=== PATIENT | male | born 1940 | race Caucasian/White ===

== ENCOUNTER → 2018-03-04 | Outpatient (CLI) | payer MEDICARE ==
[~2018-03-04] MED LIST: ASPI-496 PO; ATOR10TA9 PO; ESOM40CA PO; HYDR-3240 PO; MONT10TA6 PO; SIMV10TA3 PO; TAMS-11 PO; VITA1TAB19 PO
== END | disposition home or self-care (01) ==
LOC: CFH 08:29
PROVIDERS: ATTEND Nurse Practitioner Family
DX: K40.90 Unilateral inguinal hernia, without obstruction or gangrene, not specified as recurrent (principal); K64.0 First degree hemorrhoids; K59.00 Constipation, unspecified; L29.0 Pruritus ani
CPT/HCPCS: 76857

== ENCOUNTER 2018-08-26 12:45 | Outpatient (CLI) | payer MEDICARE ==
[2018-08-26 14:00] LABS: BASOPHILS # (AUTO) 0.03 x10^3/uL (0-0.1); BASOPHILS % (AUTO) 0 % (0-1); EOSINOPHILS # (AUTO) 0.29 x10^3/uL (0-0.4); EOSINOPHILS % (AUTO) 3 % (1-7); LYMPHOCYTES # (AUTO) 2.54 x10^3/uL (1-3.4); LYMPHOCYTES % (AUTO) 29 % (22-44); MD NO; MEAN CORPUSCULAR HEMOGLOBIN 27.8 pg (27.5-34.5); MEAN CORPUSCULAR HGB CONC 31.8 g/dL (33.2-36.2); MEAN CORPUSCULAR VOLUME 87.5 fL (81-97); MEAN PLATELET VOLUME 8.2 fL (7.4-10.4); MONOCYTES # (AUTO) 0.44 x10^3/uL (0.2-0.8); MONOCYTES % (AUTO) 5 % (2-9); NEUTROPHILS # (AUTO) 5.47 x10^3/uL (1.8-6.8); NEUTROPHILS % (AUTO) 62 % (42-75); PLATELET COUNT 301 x10^3/uL (130-400); RED BLOOD COUNT 4.55 x10^6/uL (4.38-5.82); RED CELL DISTRIBUTION WIDTH 16.4 % (9.4-14.8)
[2018-08-26 14:09] LABS: INTERNATIONAL NORMALIZED RATIO 1.06 (0.93-1.1); PROTHROMBIN TIME 11.1 Seconds (9.6-11.5)
[2018-08-26 14:10] LABS: ANION GAP 7 mmol/L (5-15); CALCIUM 8.6 mg/dL (8.5-10.1); CHLORIDE 107 mmol/L (98-107); CREATININE 1.06 mg/dL (0.7-1.3)
[2018-08-26 14:19] LABS: CULTURE INDICATED? NO; MICROSCOPIC NOT IND
[2018-08-31] MEDS ORDERED: ROPI0.254 PO (08:35)
[2018-08-31] MEDS ORDERED: PANT40TA5 PO (08:35)
[2018-08-31] MEDS ORDERED: MULT-696 PO (08:35)
== END 2018-08-26 23:59 | disposition home or self-care (01) ==
LOC: STAR 12:45
PROVIDERS: ATTEND Neurological Surgery
DX: Z01.818 Encounter for other preprocedural examination (principal); M48.061 Spinal stenosis, lumbar region without neurogenic claudication; R79.1 Abnormal coagulation profile; R94.31 Abnormal electrocardiogram [ECG] [EKG]; R82.90 Unspecified abnormal findings in urine; J90 Pleural effusion, not elsewhere classified; J84.10 Pulmonary fibrosis, unspecified; I44.7 Left bundle-branch block, unspecified
CPT/HCPCS: 36415; 71046; 80048; 81003; 85025; 85610; 85730; 93005

== ENCOUNTER 2018-09-04 07:53 | Inpatient (IN) | payer MEDICARE ==
[~2018-09-04] VITALS: Ht 188 cm; Wt 96.0 kg
[2018-09-05 08:50] VITALS: BP 104/57
== END 2018-09-05 10:11 | disposition home or self-care (01) | DRG 520 ==
LOC: OUT 07:53 → ORIP 13:30 → 4NOR 14:35 → DCLOUNGE 09-05 09:50
PROVIDERS: ADMIT Neurological Surgery; ATTEND Neurological Surgery
PROC: 01NB0ZZ Release Lumbar Nerve, Open Approach (ICD-10-PCS; principal; 2018-09-04)
PROC: 00NY0ZZ Release Lumbar Spinal Cord, Open Approach (ICD-10-PCS; 2018-09-04)
DX: M48.062 Spinal stenosis, lumbar region with neurogenic claudication (principal); J44.9 Chronic obstructive pulmonary disease, unspecified; M19.90 Unspecified osteoarthritis, unspecified site; I25.10 Atherosclerotic heart disease of native coronary artery without angina pectoris; I10 Essential (primary) hypertension; Z82.61 Family history of arthritis; Z83.6 Family history of other diseases of the respiratory system; I25.2 Old myocardial infarction; Z79.899 Other long term (current) drug therapy
CPT/HCPCS: 72100; 94640; G0378; J0690; J1100; J2250; J2405; J2704; J3010; J3370; J3490; J7613; J0330; J1200; J3480; J7120

== ENCOUNTER 2019-11-08 14:02 | Inpatient (IN) | payer MEDICARE ==
[~2019-11-08] VITALS: Ht 188 cm; Wt 90.4 kg
[~2019-11-08 14:02] MED LIST changes: +CEPH-368 PO; +MULT-696 PO; +PANT40TA6 PO; +ROPI0.254 PO; +SIMV10TA18 PO; -SIMV10TA3 PO
--- NOTE | 2019-11-08 14:10 | NUR ---
N/V/D X 2 DAYS
--- NOTE | 2019-11-08 14:53 | NUR ---
PIV PLACED FROM WHICH LABS WERE DRAWN
[2019-11-08] MEDS ORDERED: ONDANSETRON 2MG/ML, 2ML ONE (14:57)
[2019-11-08] MEDS ORDERED: SODIUM CHLORIDE FLUSH 10ML SYR IVF ONE (15:00)
[2019-11-08] MEDS ORDERED: ONDANSETRON 2MG/ML, 2ML IVPush ONE (15:00)
[2019-11-08 15:05] LABS: BASOPHILS # (AUTO) 0.02 x10^3/uL (0-0.1); BASOPHILS % (AUTO) 0 % (0-1); EOSINOPHILS # (AUTO) 0.19 x10^3/uL (0-0.4); EOSINOPHILS % (AUTO) 2 % (1-7); LYMPHOCYTES # (AUTO) 1.56 x10^3/uL (1-3.4); LYMPHOCYTES % (AUTO) 16 % (22-44); MD NO; MEAN CORPUSCULAR HEMOGLOBIN 27.7 pg (27.5-34.5); MEAN CORPUSCULAR HGB CONC 31.8 g/dL (33.2-36.2); MEAN PLATELET VOLUME 7.1 fL (7.4-10.4); MONOCYTES # (AUTO) 0.29 x10^3/uL (0.2-0.8); MONOCYTES % (AUTO) 3 % (2-9); NEUTROPHILS # (AUTO) 7.82 x10^3/uL (1.8-6.8); NEUTROPHILS % (AUTO) 79 % (42-75); PLATELET COUNT 377 x10^3/uL (130-400); RED CELL DISTRIBUTION WIDTH 14.1 % (9.4-14.8)
[2019-11-08 15:12] LABS: ALBUMIN 2.8 g/dL (3.4-5.0); ANION GAP 5 mmol/L (5-15); CALCIUM 8.4 mg/dL (8.5-10.1); CHLORIDE 91 mmol/L (98-107)
[2019-11-08 15:16] LABS: ALANINE AMINOTRANSFERASE 20 U/L (12-78); ALKALINE PHOSPHATASE 66 U/L (45-117); BILIRUBIN,TOTAL 0.5 mg/dL (0.2-1.0); TOTAL PROTEIN 6.4 g/dL (6.4-8.2)
--- NOTE | 2019-11-08 15:23 | NUR ---
UNABLE TO VOID. PROVIDER MADE AWARE- TO ADMIN 500ML OF NS. NOW COMPLAINING OF CARDIA SXS-PROVIDER NOTIFIED
[2019-11-08] MEDS ORDERED: SODIUM CHLORIDE 0.9%, 500ML IVBOLUS ONE ×2 (15:30→17:00)
--- NOTE | 2019-11-08 15:56 | NUR ---
EKG AND TROPONIN ADDED BY PROVIDER 500ML NS COMPLETE UP TO RESTROOM TO VOID
[2019-11-08 15:58] LABS: TROPONIN I < 0.015 ng/mL (0.000-0.045)
--- NOTE | 2019-11-08 16:00 | NUR ---
Po challenge successful -tolerating po without nausea Provider made aware of writers hesitation to d/c patient with ow sodium. Provider ordered another 500ml bolus and will re-eval once infused
[2019-11-08 16:27] LABS: MICROSCOPIC NOT IND
[2019-11-08] MEDS ORDERED: RANO500T2 PO (17:40)
[2019-11-08] MEDS ORDERED: NITR0.4T28 SL (17:40)
[2019-11-08] MEDS ORDERED: ASPI-515 PO (17:40)
[2019-11-08] MEDS ORDERED: MELA5TAB10 SL (17:40)
[2019-11-08] MEDS ORDERED: PREG50CA PO (17:40)
[2019-11-08] MEDS ORDERED: DESM0.1T5 PO (17:40)
[2019-11-08] MEDS ORDERED: MAALOX/HYOSCYAMINE/LIDOCAINE 45 ML BTL PO ONE ×2 (18:30→20:00)
[2019-11-08 18:52] VITALS: BP 145/78
[2019-11-08] MEDS ORDERED: NITROGLYCERIN SINGLE TAB 0.4 MG SL PRN (20:00)
[2019-11-08] MEDS: SODIUM CHLORIDE 0.9% 1,000 ML IV SCH (20:05)
[2019-11-08] MEDS ORDERED: ACETAMINOPHEN 325 MG TABLET PO PRN (20:30)
[2019-11-08] MEDS ORDERED: BISACODYL 10 MG SUPP PR PRN (20:30)
[2019-11-08] MEDS ORDERED: ONDANSETRON 2MG/ML, 2ML IVPush PRN (20:30)
[2019-11-08] MEDS ORDERED: ENOXAPARIN 40 MG/0.4 ML SQ SCH (20:30)
[2019-11-08] MEDS ORDERED: ATORVASTATIN 20 MG TABLET PO SCH (21:00)
[2019-11-08] MEDS ORDERED: MELATONIN 5 MG TABLET PO SCH (21:00)
[2019-11-08 21:02] LABS: CHLORIDE,URINE RANDOM 72 mmol/L; POTASSIUM,URINE RANDOM 43 mmol/L; SODIUM,URINE RANDOM 60 mmol/L
[2019-11-08 21:27] LABS: OSMOLALITY,URINE 419 mOsm/kg (500-850)
[2019-11-08 21:36] LABS: ANION GAP 4 mmol/L (5-15); CALCIUM 8.6 mg/dL (8.5-10.1); CHLORIDE 96 mmol/L (98-107); CHOLESTEROL, TOTAL 97 mg/dL (140-239); CREATININE 0.92 mg/dL (0.7-1.3); TRIGLYCERIDES 69 mg/dL (50-200); VLDL CHOLESTEROL 14 mg/dL (0-25)
[2019-11-08 21:46] LABS: CHOL/HDL RATIO 2.6; HDL CHOL % 39 % (26-37); HDL CHOLESTEROL (DIRECT) 38 mg/dL (40-60); LDL CHOLESTEROL,CALCULATED 45 mg/dL (54-169); LDL/HDL RATIO 1.2 (0.5-3.0)
[2019-11-08] MEDS ORDERED: TEMAZEPAM 15 MG CAPSULE PO PRN (23:00)
[2019-11-09 01:40] VITALS: BP 137/73
[2019-11-09] MEDS: SODIUM CHLORIDE 0.9% 1,000 ML IV SCH (04:05)
[2019-11-09 05:02] LABS: BASOPHILS # (AUTO) 0.03 x10^3/uL (0-0.1); BASOPHILS % (AUTO) 0 % (0-1); EOSINOPHILS # (AUTO) 0.24 x10^3/uL (0-0.4); EOSINOPHILS % (AUTO) 3 % (1-7); LYMPHOCYTES # (AUTO) 2.14 x10^3/uL (1-3.4); LYMPHOCYTES % (AUTO) 22 % (22-44); MD NO; MEAN CORPUSCULAR HEMOGLOBIN 27.5 pg (27.5-34.5); MEAN CORPUSCULAR HGB CONC 31.5 g/dL (33.2-36.2); MEAN PLATELET VOLUME 7.5 fL (7.4-10.4); MONOCYTES # (AUTO) 0.51 x10^3/uL (0.2-0.8); MONOCYTES % (AUTO) 5 % (2-9); NEUTROPHILS # (AUTO) 6.72 x10^3/uL (1.8-6.8); NEUTROPHILS % (AUTO) 70 % (42-75); PLATELET COUNT 386 x10^3/uL (130-400); RED BLOOD COUNT 4.49 x10^6/uL (4.38-5.82); RED CELL DISTRIBUTION WIDTH 14.6 % (9.4-14.8)
[2019-11-09 05:09] LABS: ANION GAP 3 mmol/L (5-15); CHLORIDE 104 mmol/L (98-107); CREATININE 0.99 mg/dL (0.7-1.3)
[2019-11-09 06:44] VITALS: BP 114/65
[2019-11-09] MEDS ORDERED: PANTOPRAZOLE 40MG TABLET PO SCH (07:00)
[2019-11-09] MEDS ORDERED: ASPIRIN 81 MG TABLET EC PO SCH (09:00)
[2019-11-09] MEDS ORDERED: [UNRECOGNIZED DRUG - OTHER] PO SCH (09:00)
[2019-11-09] MEDS ORDERED: PREGABALIN 25 MG CAPSULE PO SCH (09:00)
[2019-11-09] MEDS ORDERED: CALCIUM CARBONATE 500 MG TAB.CHEW PO PRN (09:30)
== END 2019-11-09 10:50 | disposition home or self-care (01) | DRG 641 ==
LOC: ED 14:34 → EDIP 17:16 → 4WST 18:43 → DCLOUNGE 11-09 10:36
PROVIDERS: ADMIT Family Medicine; ATTEND Family Medicine
DX: E87.1 Hypo-osmolality and hyponatremia (principal); E86.1 Hypovolemia; D64.9 Anemia, unspecified; E78.5 Hyperlipidemia, unspecified; I11.9 Hypertensive heart disease without heart failure; I25.10 Atherosclerotic heart disease of native coronary artery without angina pectoris; J45.909 Unspecified asthma, uncomplicated; K21.9 Gastro-esophageal reflux disease without esophagitis; G47.33 Obstructive sleep apnea (adult) (pediatric); N39.44 Nocturnal enuresis; N40.1 Benign prostatic hyperplasia with lower urinary tract symptoms; I25.2 Old myocardial infarction; Z95.5 Presence of coronary angioplasty implant and graft; Z87.891 Personal history of nicotine dependence; Z82.5 Family history of asthma and other chronic lower respiratory diseases; T38.895A Adverse effect of other hormones and synthetic substitutes, initial encounter; Y92.89 Other specified places as the place of occurrence of the external cause
CPT/HCPCS: 36415; 80048; 80053; 80061; 81003; 82436; 83690; 83930; 83935; 84133; 84300; 84443; 84484; 85025; 93005; 99285; G0378; J1650; J2405; J7030; J7040

== ENCOUNTER → 2019-12-14 | Outpatient (CLI) | payer MEDICARE ==
[~2019-12-14] MED LIST changes: +ASPI-515 PO; +DESM0.1T5 PO; +MELA5TAB10 SL; +NITR0.4T28 SL; +PREG50CA PO; +RANO500T2 PO
== END | disposition home or self-care (01) ==
LOC: CFH 14:31
PROVIDERS: ATTEND Family Medicine
DX: N62 Hypertrophy of breast (principal); N63.0 Unspecified lump in unspecified breast
CPT/HCPCS: 77066; G0279